=== PATIENT | female | born 2000 | race African-American/Black ===

== ENCOUNTER 2024-07-12 10:28 | Emergency (ER) | payer MEDICAID ==
[~2024-07-12] VITALS: Ht 167.6 cm; Wt 61.2 kg
[2024-07-12 10:39] VITALS: BP 131/86; TEMP 98.5; O2SAT 99
[2024-07-12 11:47] LABS: APPEARANCE,URINE CLEAR (CLEAR); BILIRUBIN,URINE NEGATIVE (NEGATIVE); BLOOD, URINE NEGATIVE Ery/uL (NEGATIVE); COLOR,URINE YELLOW (YELLOW); KETONES,URINE NEGATIVE (NEGATIVE); LEUKOCYTE ESTERASE ,URINE 1+ (NEGATIVE); NITRITE, URINE NEGATIVE (NEGATIVE); PH,URINE 5.5 (5.0-8.0); PROTEIN,URINE NEGATIVE (NEGATIVE); UGLUCOSE NEGATIVE (NEGATIVE); UROBILINOGEN,URINE 0.2 EU/dL (0.2)
[2024-07-12] MEDS ORDERED: CEPH-570 PO (11:48)
[2024-07-12 11:49] LABS: ADD URINE CULTURE YES; BACTERIA,URINE Moderate /HPF (None Seen); RBC,URINE 0-2 /HPF (0-2); SQUAMOUS EPITHELIAL CELL,UR Rare /HPF (None Seen)
== END 2024-07-12 11:56 | disposition home or self-care (01) ==
LOC: ER 10:36
DX: N39.0 Urinary tract infection, site not specified (principal); R30.0 Dysuria
CPT/HCPCS: 81001; 87086-TC